=== PATIENT | female | born 2000 | race Caucasian/White ===

== ENCOUNTER 2018-07-31 08:57 | Day surgery (SDC) | payer MEDICAID ==
[~2018-07-31] VITALS: Ht 162.6 cm; Wt 67.1 kg
[2018-07-31 09:51] VITALS: BP 116/77
[2018-07-31 11:55] VITALS: BP 118/61
== END 2018-07-31 12:30 | disposition home or self-care (01) ==
LOC: GI 08:57 → OR 11:30 → GI 12:30
PROVIDERS: Internal Medicine Gastroenterology
PROC: 0DJD8ZZ Inspection of Lower Intestinal Tract, Via Natural or Artificial Opening Endoscopic (ICD-10-PCS; principal; 2018-07-31 09:30)
DX: K59.00 Constipation, unspecified (principal); K64.8 Other hemorrhoids
CPT/HCPCS: 45378; J1200; J1610; J2250; J2310; J3010; J3490

== ENCOUNTER 2019-04-05 07:58 | Emergency (ER) | payer MEDICAID ==
[~2019-04-05] VITALS: Ht 160 cm; Wt 63.2 kg
[2019-04-05 08:15] VITALS: Ht 160 cm; Wt 63.2 kg
[2019-04-05 10:18] VITALS: BP 122/71
== END 2019-04-05 10:18 | disposition home or self-care (01) ==
LOC: ED 07:58
DX: J10.1 Influenza due to other identified influenza virus with other respiratory manifestations (principal)
CPT/HCPCS: 87804; J1885; Q0162